=== PATIENT | female | born 1990 | race Two or more races ===

== ENCOUNTER 2018-01-31 03:15 | Emergency (ER) | payer OTHER ==
[~2018-01-31] VITALS: Ht 160 cm; Wt 49.9 kg
[~2018-01-31 03:15] MED LIST: ETON1VAG VG
--- NOTE | 2018-01-31 03:40 | NUR ---
PATIENT WALKED INTO ER FOR C/O ABDOMIANL 5 HOURS COMMERCIAL ATTACHE. PT STATES HAS ONE FUNCTIONING KIDNEY, HAD PAIN IN PAST BUT NOT THIS SEVERE.
[2018-01-31 03:42] LABS: *BILIRUBIN,URIN NEGATIVE (NEGATIVE); *BLOOD, URINE Trace-lysed (NEGATIVE); *CLARITY,URINE CLEAR (CLEAR); *COLOR,URINE YELLOW (YELLOW); *KETONES,URINE 1+ (NEGATIVE); *PROTEIN,URINE NEGATIVE (NEGATIVE); *UROBILINOGEN,URINE 0.2 E.U./dl (NORMAL); LEUKOCYTE ESTERASE ,URINE 1+ (NEGATIVE); NITRITE, URINE NEGATIVE (NEGATIVE); UGLUCOSE NEGATIVE (NEGATIVE)
--- NOTE | 2018-01-31 03:42 | NUR ---
DR. HANSEN AT BEDSIDE FOR MSE.
[2018-01-31] MEDS ORDERED: ONDANSETRON 4 MG/2 ML VIAL ONE (03:49)
[2018-01-31] MEDS ORDERED: MORPHINE SULFATE 2 MG/1 ML DISP.SYRIN ONE (03:49)
[2018-01-31 03:52] LABS: BACTERIA,URINE FEW /HPF (NONE SEEN); SQUAMOUS EPITHELIAL CELL,UR FEW /HPF (NONE SEEN)
[2018-01-31] MEDS ORDERED: MORPHINE SULFATE 4 MG/1 ML DISP.SYRIN ONE (03:55)
[2018-01-31 03:56] LABS: *URINE HCG, QUAL NEGATIVE (NEGATIVE)
[2018-01-31] MEDS ORDERED: MORPHINE SULFATE 2 MG/1 ML DISP.SYRIN IV ONE (04:00)
[2018-01-31] MEDS ORDERED: MORPHINE SULFATE 4 MG/1 ML DISP.SYRIN IV ONE (04:00)
[2018-01-31] MEDS ORDERED: HYDROMORPHONE 1 MG/1 ML DISP.SYRIN IV ONE (04:00)
[2018-01-31] MEDS ORDERED: IV NORMAL SALINE 1000 ML BAG IV ONE (04:00)
[2018-01-31] MEDS ORDERED: ONDANSETRON 4 MG/2 ML VIAL IV ONE (04:00)
[2018-01-31] MEDS ORDERED: HYDROMORPHONE 1 MG/1 ML DISP.SYRIN ONE ×2 (04:02→04:05)
[2018-01-31 04:26] LABS: BILIRUBIN,DIRECT 0.2 mg/dL (0.0-0.2); BILIRUBIN,TOTAL 0.8 mg/dL (0.2-1.0); CREATININE 1.1 mg/dL (0.6-1.3); POTASSIUM 3.5 mmol/L (3.5-5.1); TOTAL PROTEIN, SERUM 7.8 g/dL (6.4-8.2)
--- NOTE | 2018-01-31 04:41 | NUR ---
PATIENT RETURNED FROM CT-SCAN, 5/10 PAIN AT THIS TIME.
[2018-01-31 04:43] LABS: BASOPHILS % (AUTO) 0.2 % (0.0-2.0); EOSINOPHILS # (AUTO) 0.1 K/uL (0.0-0.7); EOSINOPHILS % (AUTO) 1.1 % (0.0-7.0); HEMATOCRIT 36.2 % (31.2-41.9); HEMOGLOBIN 12.3 g/dL (10.9-14.3); LYMPHOCYTES # (AUTO) 1.4 K/uL (20.0-40.0); LYMPHOCYTES % (AUTO) 23.8 % (20.5-51.5); MEAN CORPUSCULAR HEMOGLOBIN 29.6 uug (24.7-32.8); MEAN CORPUSCULAR HGB CONC 34 g/dL (32.3-35.6); MEAN CORPUSCULAR VOLUME 87.1 fL (75.5-95.3); MONOCYTES % (AUTO) 0.7 % (0.0-11.0); NEUTROPHILS # (AUTO) 4.4 K/uL (1.8-8.9); NEUTROPHILS % (AUTO) 74.2 % (38.5-71.5); PLATELET COUNT (AUTO) 214 K/uL (179-408); RED BLOOD CELL COUNT(AUTO) 4.16 MIL/uL (3.63-4.92); WHITE BLOOD COUNT (AUTO) 5.9 K/uL (3.8-11.8)
--- NOTE | 2018-01-31 05:24 | NUR ---
IV removed. Catheter intact and site benign. Pressure and 4x4 gauze applied to site. No bleeding noted.
--- NOTE | 2018-01-31 05:28 | NUR ---
Patient discharged to home in stable conditon. Written and verbal after care instructions given. Patient verbalizes understanding of instructions. Pt ambulated out of ER in steady gait. All belongings with pt. VSS. NAD noted. Pt stated she feels much better. Pt has her sister to pick her up and drive her home.
[2018-01-31 05:29] VITALS: BP 112/62
[2018-01-31] MEDS ORDERED: adderall PO (23:21)
[2018-02-01 22:11] LABS: *GC NAA Negative (Negative)
[2018-02-02 07:08] LABS: *TRIC.VAG. NAA Negative (Negative)
== END 2018-01-31 05:31 | disposition home or self-care (01) ==
LOC: ER 03:20
DX: R10.12 Left upper quadrant pain (principal); F17.200 Nicotine dependence, unspecified, uncomplicated
CPT/HCPCS: 36415; 74176; 80048; 80076; 81001; 84703; 85025; 87077; 87086; 87186; 87491; 96361; 96374; 96375; 99284; J1170; J2270 ×2; J2405; A4663; J7030